=== PATIENT | female | born 1960 | race African-American/Black ===

== ENCOUNTER 2017-05-25 12:22 | Outpatient (CLI) | payer OTHER ==
--- NOTE | 2017-05-25 13:39 | Mammography Report ---
Bilateral mammogram: Compared to 05/25/14. CAD study utilized. Findings: Heterogeneous breast parenchyma bilaterally. New circumscribed 5 mm density noted at mid upper left breast and 7 mm density at mid upper right breast and a 7 mm density at either anterior right breast. The densities in the right breast may be concordant or discordant. Normal axilla. Impression: Focal asymmetry is identified. Recommend spot mag and if necessary sonographic examination. BI-RADS CATEGORY: 0 = Needs additional imaging evaluation ACR BI-RADS MAMMOGRAPHIC CODES: 0 = Needs additional imaging evaluation; 1 = Negative; 2 = Benign; 3 = Probably benign; 4 = Suspicious; 5 = Malignant; 6 = Known biopsy-proven malignancy COMMENT: 1. Dense breast tissue, i.e., adenosis, fibrocystic changes, etc., may obscure an underlying neoplasm. 2. Approximately 10% of cancers are not detected with mammography. 3. A negative mammography report should not delay biopsy if a clinically suspicious mass is present. COMMENT: Patient follow-up letters are generated in [employer].
== END 2017-05-25 12:23 | disposition home or self-care (01) ==
LOC: MAMMO 12:22
PROVIDERS: ATTEND Family Medicine
DX: Z12.31 Encounter for screening mammogram for malignant neoplasm of breast (principal)
CPT/HCPCS: 77067; G0202

== ENCOUNTER 2017-06-04 13:48 | Outpatient (CLI) | payer OTHER ==
--- NOTE | 2017-06-04 14:26 | Mammography Report ---
Bilateral mammogram: Additional compression imaging of both breasts is performed based on recent screening exam of May 25. Asymmetry is in the superior left and right breast are compressed and appear essentially unchanged compared to a prior exam in May 2014. Impression: No recent findings. Recommendation: Annual mammogram followup. BI-RADS CATEGORY: 1 = Negative ACR BI-RADS MAMMOGRAPHIC CODES: 0 = Needs additional imaging evaluation; 1 = Negative; 2 = Benign; 3 = Probably benign; 4 = Suspicious; 5 = Malignant; 6 = Known biopsy-proven malignancy COMMENT: 1. Dense breast tissue, i.e., adenosis, fibrocystic changes, etc., may obscure an underlying neoplasm. 2. Approximately 10% of cancers are not detected with mammography. 3. A negative mammography report should not delay biopsy if a clinically suspicious mass is present.
== END 2017-06-04 13:49 | disposition home or self-care (01) ==
LOC: MAMMO 13:48
PROVIDERS: ATTEND Family Medicine
DX: N64.89 Other specified disorders of breast (principal)
CPT/HCPCS: 77066; G0204